=== PATIENT | female | born 1995 | race Caucasian/White ===

== ENCOUNTER 2018-04-02 10:43 | Outpatient (RCR) | payer OTHER | END 2018-07-01 | disposition home or self-care (01) | LOC: WSOH | DX: S90.112A Contusion of left great toe without damage to nail, initial encounter (principal); W16.532A Jumping or diving into swimming pool striking wall causing other injury, initial encounter; Y92.34 Swimming pool (public) as the place of occurrence of the external cause; Y99.0 Civilian activity done for income or pay; Z79.1 Long term (current) use of non-steroidal anti-inflammatories (NSAID); Z79.899 Other long term (current) drug therapy ==